=== PATIENT | male | born 1950 | race Caucasian/White ===

== ENCOUNTER 2016-11-09 13:22 | Emergency (ER) | payer OTHER ==
[2016-11-09] MEDS ORDERED: Famotidine TAB* 20 MG PO ONE (14:16)
[2016-11-09] MEDS ORDERED: methylPREDNISolone 125 MG* 2 ML VIAL IM ONE (14:16)
--- NOTE | 2016-11-09 14:27 | UC ---
Allergic Reaction HPI - HPI Summary HPI Summary: Stung on R eyebrow by flying insect while cycling about 2 hours ago. Now has mild nausea and very itchy palms. No rash, vomiting, fainting, or trouble breathing. Has had similar reactions to stings in the past, denies any past anaphylaxis, usually just has local reactions. Family hx of severe reactions. - History of Current Complaint Chief Complaint: UCAllergicReaction Stated Complaint: BEE STING Time Seen by Provider: 11/09/16 13:59 Hx Obtained From: Patient Onset/Duration: Sudden Onset Severity Initially: Mild Severity Currently: Mild Character: Pruritus Aggrevating Factor(s): Nothing Alleviating Factor(s): Nothing Associated Signs And Symptoms: Negative: Chest Pain, Difficulty Breathing, Hoarseness, Lightheadedness, Nausea, Syncope, Throat Tightening, Vomiting - Allergies/Home Medications Allergies/Adverse Reactions: Allergies Allergy/AdvReac Type Severity Reaction Status Date / Time No Known Allergies Allergy Verified 08/25/16 11:08 PMH/Surg Hx/FS Hx/Imm Hx Previously Healthy: Yes - Surgical History Surgical History: Yes Surgery Procedure, Year, and Place: 1994 OPEN RIGHT INGUINAL HERNIA REPAIR, [facility] – [place]. 2001 PNEUMOTHORAX WITH CHEST TUBE INSERTION, DONE IN ER. TURP 2011 x2, [facility] - Family History Known Family History: Positive: Other - father had anaphylactic reactions to stings - Social History Alcohol Use: None Substance Use Type: None Smoking Status (MU): Never Smoked Tobacco Have You Smoked in the Last Year: No - Immunization History Most Recent Influenza Vaccination: 2013 Most Recent Tetanus Shot: 05/07/2011 Most Recent Pneumonia Vaccination: never Review of Systems Constitutional: Negative Skin: Other - sting to eyebrow Eyes: Negative ENT: Negative Respiratory: Negative Cardiovascular: Negative Gastrointestinal: Negative Genitourinary: Negative Motor: Negative Neurovascular: Negative Musculoskeletal: Negative Neurological: Negative Psychological: Negative All Other Systems Reviewed And Are Negative: Yes Physical Exam Triage Information Reviewed: Yes Appearance: Well-Appearing, No Pain Distress, Well-Nourished Vital Signs: Initial Vital Signs Temp 98.5 F 11/09/16 13:23 Pulse 78 11/09/16 13:23 Resp 18 11/09/16 13:23 Pulse Ox 99 11/09/16 13:23 Vital Signs Reviewed: Yes Eye Exam: Normal Eyes: Positive: Conjunctiva Clear ENT Exam: Normal ENT: Positive: Normal ENT inspection, Hearing grossly normal, Pharynx normal - widely patent, TMs normal Dental Exam: Normal Neck exam: Normal Neck: Positive: Supple, Nontender, No Lymphadenopathy Respiratory Exam: Normal Respiratory: Positive: Chest non-tender, Lungs clear, Normal breath sounds, No respiratory distress, No accessory muscle use, Respiratory distress Cardiovascular Exam: Normal Cardiovascular: Positive: RRR, No Murmur Musculoskeletal Exam: Normal Musculoskeletal: Positive: Strength Intact Neurological Exam: Normal Neurological: Positive: Alert Psychological Exam: Normal Skin Exam: Normal - no urticaria, no swelling at site of sting Allergic Reaction Course/Dx - Differential Dx/Diagnosis Provider Diagnoses: insect sting R eyebrow Discharge - Discharge Plan Condition: Stable Disposition: HOME Prescriptions: Epinephrine [Epipen 2-Abelardo] 0.3 mg IM ONCE #1 inj predniSONE TAB* [Deltasone TAB*] 40 mg PO DAILY #6 tab Patient Education Materials: Insect Bite or Sting (ED) Referrals: Alexander Malloy MD [Primary Care Provider] - Additional Instructions: Take cetirizine (zyrtec) in the morning and then take 50mg diphenhydramine in the afternoon and again at bedtime for the next 3-4 days. If you have new or worsening symptoms, please go to the hospital.
== END 2016-11-09 14:40 | disposition home or self-care (01) ==
LOC: UCEAST 13:22
DX: T63.441A Toxic effect of venom of bees, accidental (unintentional), initial encounter (principal)
CPT/HCPCS: 96372; 99212; A9270-GY; G0463; J2930

== ENCOUNTER 2018-08-19 17:11 | Emergency (ER) | payer OTHER ==
--- NOTE | 2018-08-19 17:19 | UC ---
Hand/Wrist HPI - HPI Summary HPI Summary: 67 yo male presents with right ring finger injury 4 days ago. He tells me that he was hurrying to catch a ride out of town and cut his finger on a piece of metal in the house. The tip of his finger was avulsed, but the piece of skin is still slightly attached. He has been applying neosporin and bandaging the area with a band-aid. Here to make sure that it is healing well. No pain, drainage, fevers, streaking, or edema. - History Of Current Complaint Stated Complaint: FINGER INJURY Time Seen by Provider: 08/19/18 17:19 Hx Obtained From: Patient Onset/Duration: Sudden Onset Severity Initially: Mild Severity Currently: None Pain Intensity: 0 Pain Scale Used: 0-10 Numeric - Allergies/Home Medications Allergies/Adverse Reactions: Allergies Allergy/AdvReac Type Severity Reaction Status Date / Time No Known Allergies Allergy Verified 08/19/18 17:24 PMH/Surg Hx/FS Hx/Imm Hx Psychological History: Bipolar Disorder - Surgical History Surgical History: Yes Surgery Procedure, Year, and Place: 1994 OPEN RIGHT INGUINAL HERNIA REPAIR, [facility] – [place]. 2001 PNEUMOTHORAX WITH CHEST TUBE INSERTION, DONE IN ER. TURP 2011 x2, [facility] - Family History Known Family History: Positive: Other - father had anaphylactic reactions to stings - Social History Lives: With Family Alcohol Use: None Substance Use Type: None Smoking Status (MU): Never Smoked Tobacco Have You Smoked in the Last Year: No - Immunization History Most Recent Influenza Vaccination: 2013 Most Recent Tetanus Shot: 05/07/2011 Most Recent Pneumonia Vaccination: never Review of Systems All Other Systems Reviewed And Are Negative: Yes Constitutional: Positive: Negative Skin: Positive: Other - Laceration right 4th finger Respiratory: Positive: Negative Cardiovascular: Positive: Negative Musculoskeletal: Positive: Negative Neurological: Positive: Negative Psychological: Positive: Negative Physical Exam - Summary Physical Exam Summary: GENERAL: NAD. WDWN. No pain distress. SKIN: Right 4th finger: Distal tip with 5mm partially avulsed skin that is white in color. Underlying this there is healing granulation tissue. No edema, erythema, drainage, or pain. CHEST: No accessory muscle use. Breathing comfortably and in no distress. CV: Pulses intact. Cap refill <2seconds NEURO: Alert. PSYCH: Age appropriate behavior. Triage Information Reviewed: Yes Vital Signs: Vital Signs: Temp Pulse Resp BP Pulse Ox 98.1 F 45 16 152/77 97 08/19/18 17:17 08/19/18 17:17 08/19/18 17:17 08/19/18 17:17 08/19/18 17:17 Vital Signs Reviewed: Yes Hand/Wrist Course/Dx - Course Course Of Treatment: Wound appears to be healing well. Will leave the partially avulsed skin attached as it is providing somewhat of a protective barrier to the healing skin underneath. Advised to continue applying neosporin and to apply a band-aid until well healed. - Differential Dx/Diagnosis Provider Diagnosis: Finger laceration Discharge - Sign-Out/Discharge Documenting (check all that apply): Patient Departure All imaging exams completed and their final reports reviewed: No Studies - Discharge Plan Condition: Stable Disposition: HOME Patient Education Materials: Laceration (DC), Acute Wound Care (ED) Referrals: Alexander Malloy MD [Primary Care Provider] - Additional Instructions: If you develop a fever, shortness of breath, chest pain, new or worsening symptoms - please call your PCP or go to the ED. Continue applying neosporin and a bandage daily until the underlying skin is well healed. I suspect the overlying skin with come off naturally in the next few days - Billing Disposition and Condition Condition: STABLE Disposition: Home - Attestation Statements Provider Attestation: I was available for consult. This patient was seen by the DAVIS. The patient was not presented to, seen by, or examined by me. -Jean
[2018-08-19 17:24] VITALS: BP 152/77
== END 2018-08-19 17:45 | disposition home or self-care (01) ==
LOC: UCEAST 17:11
DX: S61.214A Laceration without foreign body of right ring finger without damage to nail, initial encounter (principal); W26.8XXA Contact with other sharp object(s), not elsewhere classified, initial encounter; Y92.008 Other place in unspecified non-institutional (private) residence as the place of occurrence of the external cause; F31.9 Bipolar disorder, unspecified
CPT/HCPCS: 99212; G0463